=== PATIENT | male | born 1965 | race Caucasian/White ===

== ENCOUNTER 2017-06-28 06:48 | Emergency (ER) | payer BC, OTHER ==
--- NOTE | 2017-06-30 11:20 | ER ---
DATE SEEN: 06/28/2017 HISTORY OF PRESENT ILLNESS: This 51-year-old single, nonsmoking male who works at [employer] and drinks 6 beers a day, noted the onset of mid-epigastric abdominal discomfort a month ago. He has been excessively stressed as his mother just 2 weeks ago and attended to her during that period of time. He has associated posterior bilateral flank discomfort of 4/10 in intensity. Onset was 3 weeks ago, increasing this last week. Melena of 3 to 4 days' duration. Noted the amount of black stools was increased this morning. He has had increasing midepigastric abdominal discomfort for the past 6 hours of 4 to 5/10 in intensity, has been going on for a week. He associates this with drinking alcohol. 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 He does not smoke. He had smoked in the past, but no longer smokes. Smoker, discontinued, total 10-plus- pack years. Alcohol, 6-pack per day. PAST MEDICAL HISTORY: Denies hypertension, diabetes, asthma, cancer, or heart disease. PREVIOUS SURGERIES: Previous surgery related to Hodgkin lymphoma. He had a port placed and chemotherapy. REVIEW OF SYSTEMS: HEENT: Negative. CARDIORESPIRATORY: Negative. GI: No diarrhea. No constipation. He has had mild loose stools and mild midepigastric discomfort and also bilateral flank discomfort. The patient recently saw Dr. Figueroa for his health metrics exam, he was noted to have elevated pressure. He went back to check with the doctor and pressure was not elevated. : Has once to twice a night nocturia (prostatism). MUSCULOSKELETAL: Negative. Denies muscle aches or pain. NEURO: Negative. Denies headaches, compromised vision, or compromised strength. PHYSICAL EXAMINATION: VITAL SIGNS: Blood pressure 143/92 and 168/102, heart rate 72, oxygen saturation 99%, and respiratory rate 16. CONSTITUTIONAL: The patient is alert, has slight flushed face, appears to have slightly decreased hearing, very pleasant and muscular fellow. HEENT: PERRLA intact. Pharynx without abnormality. Eyegrounds negative. Teeth in good repair. NECK: No cervical adenopathy, thyromegaly, or masses in the neck or bruits. LUNGS: Clear without rales, rhonchi, or wheezes. HEART: S1, S2. No irregularity of rhythm. ABDOMEN: Soft, mild midepigastric abdominal discomfort. No CVA percussion tenderness. No reproducible chest wall discomfort. No suprapubic discomfort or distention. Bowel sounds slightly increased. No borborygmi. GENITALIA: Negative. MUSCULOSKELETAL: Lower extremities without vascular tenderness or edema. NEURO: Normoactive deep tendon reflexes. Cranial nerves 2 through 12 intact. Oriented x3. Gait appropriate. Strength appropriate. Speech and thought content appropriate. Trace tongue fasciculation. LABORATORY FINDINGS: White count slightly low at 4400 (possibly secondary to alcohol use). Hemoglobin 16.2, reflecting mild dehydration. Platelets 260,000. Red blood cell indices normal. Differential is normal. PMNs 62 and lymphocytes 24. Complete metabolic panel, normal, sodium 141, potassium 4.2, chloride 105, CO2 of 28, BUN 15, and creatinine is 1.1. Creatinine clearance is normal with GFR of greater than 60. BUN and creatinine ratio 13.6 (the latter does not reflect dehydration). Other abnormalities; glucose 123, bilirubin 0.6, AST 26, ALT 46, and alkaline phosphatase 52. The latter elevated secondary to recent alcohol use at 0100 hours this morning. Blood alcohol is normal. Urine, moderate blood occult. Few bacteria, rare coarse granular casts. Blood alcohol less than 0.03. WORKING DIAGNOSES: Rule out kidney stones. Abdominal pain is possibly secondary to recurrent Hodgkin lymphoma, gastritis secondary to alcohol excess. DIAGNOSES: 1. Alcoholism with mild alcoholic hepatitis, liver enzyme elevation without platelet suppression or anemia. 2. Hemoccult was positive. Hemoglobin was 16.2, Hemoccult-positive suggests gastrointestinal bleed proximal to the third portion of the duodenum, rule out duodenitis or gastritis, most likely alcoholic gastritis. 3. No clinical evidence for pancreatitis. Lipase and amylase were not performed. 4. History of prostatic outlet obstruction. 5. Hepatomegaly-liver edge is palpable. 6. Stress related to mother's who recently , 2 weeks ago, provided care for her for the last month of life. 7. Discontinued smoking. 8. Hypertension. Blood pressure 168/102. The latter blood pressure may be elevated secondary to under-hydration and alcohol excess. However, he needs to have further followup. PLAN: 1. Dismissed. 2. Start Prilosec 20 mg b.i.d. for a month. May decrease after a week if markedly improved. 3. Follow up with his doctor in a week. 4. CAT scan was ordered to rule out renal stones (had hematuria; however, the CAT scan machine is down, and will not be performed until possibly tomorrow on 06/29/2017 if the CAT scan machine is completed, otherwise 06/30/2017). 5. He needs to work on his issues of alcoholism. We discussed the potential complication problems with use of alcohol. We also discussed the abnormality of liver enzymes, but at present, they are not excessively elevated, but with time, will probably increase if he does not stop drinking alcohol. He is committed to working on this issue. 6. Prostatism with nocturia 1 to 2 per night. 7. Not depressed. 8. Hodgkin lymphoma, stable presently. He has not seen his cancer doctor for 6 years. He completed therapy 11 years ago. Rule out possible recurrence or complication of Hodgkin's. For that reason, in addition to possible renal stones, hematuria and abdominal pain, a CAT scan with and without contrast are planned. 9. He is to follow up with his doctor in a week. No pain medicines given to the patient. /[id number] KAYLA/VANNA MTDD
--- NOTE | 2017-07-01 12:37 | ER ---
DATE SEEN IN THE ER: 06/28/2017 ADDENDUM HISTORY: Followup on the patient's CAT scan of the abdomen completed 06/29/2017, and report completed on 06/30/2017. On discussion with Dr. Christianson, the patient was noted to have bladder thickening suggesting cystitis, also pyelocalyceal dilation and ureter dilation, a little bit more than normal and more than the 2007 previous CAT scan. The left is greater than right. No cancer recurrence. No appendicitis-appendix is normal. Has a tiny cyst in the kidneys. ASSESSMENT: Partial bladder outlet obstruction secondary to prostatism with symptomatic ureteral and radiologic presence for ureteral dilation, pyelocaliectasis dilation, which may be causing mild flank discomfort. PLAN: The patient has been informed. He is going to follow up with his doctor. Perhaps he needs further prostate medicines to diminish the prostate enlargement and urological followup. /[id number] KAYLA/VANNA GOVEA
== END 2017-06-28 09:15 | disposition home or self-care (01) ==
LOC: FB.ED 06:48
DX: F10.20 Alcohol dependence, uncomplicated (principal); K70.10 Alcoholic hepatitis without ascites; R16.0 Hepatomegaly, not elsewhere classified; R74.8 Abnormal levels of other serum enzymes; I10 Essential (primary) hypertension; Z87.891 Personal history of nicotine dependence; Z73.3 Stress, not elsewhere classified
CPT/HCPCS: 36415; 80053; 81001; 82272; 85025; 99283; G0480

== ENCOUNTER 2017-11-19 07:24 | Day surgery (SDC) | payer BC ==
[2017-11-19] MEDS ORDERED: Lactated Ringers 1,000 ML IV SCH (07:30)
[2017-11-19] MEDS ORDERED: Propofol 200 MG/20 ML SDV IV ONE (08:30)
--- NOTE | 2017-11-19 09:15 | PCM.OPNOTE ---
- General Post-Op/Procedure Note Date of Surgery/Procedure: 11/19/17 Operative Procedure(s): egd with bx Findings: gastroduodenitis Pre Op Diagnosis: abd pain Post-Op Diagnosis: gastroduodenitis Anesthesia Technique: JULISSA Primary Surgeon: Luis Arizmendi Anesthesia Provider: Veronica Rios Pathology: stomach and duodenum Complications: None Condition: Good Free Text/Narrative:: see dictation
--- NOTE | 2017-11-19 09:34 | OR ---
DATE OF OPERATION: 11/19/2017 SURGEON: Luis Arizmendi MD PROCEDURE PERFORMED: Upper endoscopy with cold forceps biopsy. PREOPERATIVE DIAGNOSIS: Abdominal pain. POSTOPERATIVE DIAGNOSIS: Gastroduodenitis. INDICATIONS FOR PROCEDURE: This is a 51-year-old white male, who is referred with a history of abdominal pain, kind of in the upper abdomen but not quite the epigastrium. He noted some relief with a proton pump inhibitor, and as a result, was offered and accepted an upper endoscopy. DESCRIPTION OF OPERATION: After an excellent IV sedation was administered, bite block was inserted, flexible endoscope was passed without difficulty down the patient's esophagus and into the stomach. Stomach was insufflated. Scope was passed through the pylorus to the second portion of the duodenum and then slowly withdrawn. The following findings were noted: It appeared to have some duodenitis in the first portion of the duodenum, biopsies were taken. Stomach did demonstrate what appeared to be some diffuse gastritis, random biopsies were taken. Esophagus unremarkable. The stomach was deflated. Scope was removed. The patient tolerated the procedure well and was taken to the recovery room in good condition. /[id number] /WESL
== END 2017-11-19 10:05 | disposition home or self-care (01) ==
LOC: FB.SDS 07:24
PROVIDERS: ATTEND Surgery
DX: K29.50 Unspecified chronic gastritis without bleeding (principal); N40.1 Benign prostatic hyperplasia with lower urinary tract symptoms; N13.8 Other obstructive and reflux uropathy; C81.11 Nodular sclerosis Hodgkin lymphoma, lymph nodes of head, face, and neck; K21.9 Gastro-esophageal reflux disease without esophagitis; Z87.891 Personal history of nicotine dependence; Z79.899 Other long term (current) drug therapy; Z88.0 Allergy status to penicillin
CPT/HCPCS: 43239; 88305; 88342; J2704; J7120